=== PATIENT | male | born 2005 | race American Indian/Alaskan Native ===

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

== ENCOUNTER 2023-06-16 15:23 | Emergency (ER) | payer MEDICAID ==
[2023-06-16 15:56] VITALS: BP 135/76; PULSE 76
== END 2023-06-16 17:26 | disposition home or self-care (01) ==
LOC: DL.ED 15:23
DX: S62.314A Displaced fracture of base of fourth metacarpal bone, right hand, initial encounter for closed fracture (principal); S62.316A Displaced fracture of base of fifth metacarpal bone, right hand, initial encounter for closed fracture; F17.210 Nicotine dependence, cigarettes, uncomplicated; W22.8XXA Striking against or struck by other objects, initial encounter
CPT/HCPCS: 29125; 73130-RT; 99283; 99283-25